=== PATIENT | male | born 1970 | race Caucasian/White ===

== ENCOUNTER 2025-01-18 12:32 | Emergency (ER) | payer BC, MEDICARE, SELFPAY ==
[2025-01-18 12:38] VITALS: BP 138/89
--- NOTE | 2025-01-18 14:30 | EDRN ---
Pt arrives w/ swelling dmitri rednes of R lower leg. Pt states his leg has been red and very swollen for 3-4 days. Pt has not been able to sleep and not been elevating his leg as much as he usually does. Pt states w/c area that elevates his leg is now
broken and he has been sleeping in w/c. Pt denies any pain but does feel pressure. No unusual to have redness. May not be cellulitis per pt and his .
[2025-01-18 14:33] VITALS: BMI 28.0
--- NOTE | 2025-01-18 14:48 | EDRN ---
Bilateral dorsalis pedis pulses present w/ doppler.
--- NOTE | 2025-01-18 15:08 | ED.GENMED ---
History of Present Illness
General
Chief Complaint: Skin Problem
Source: patient and family
Exam Limitations: none
Time Seen by Provider: 01/18/25 15:02
History of Present Illness
History of Present Illness:
54-year-old male 3 to 4 days of right leg swelling and redness. Lost the toenail 3 to 4 weeks ago. No fever chills or systemic symptoms. No chest pain or shortness of breath. Patient is paraplegic.
Past History
Past History
ED Past Medical History: Other (Paraplegia, IBS, Self cath's 12 times daily, Baclofen pump)
ED Past Surgical History: Orthopedic (Spinal fusion, B/L femur , Left shoulder surgery. Toe amputated left foot) and Other (Colostomy, Breast reduction. )
Social History
Tobacco: Non-smoker
Alcohol: Occasional
Personal:
Living: with family
Review of Systems
Review of Systems
All Other Systems: Not applicable
Constitutional: Denies fever or chills
Phy Exam
Physical Exam
Physical Exam:
GENERAL: Alert and oriented in no apparent distress
CARDIAC: Regular rate and rhythm without any obvious murmurs.
LUNGS: Clear breath sounds,normal
ABDOMEN: Soft, without focal tenderness or distention. Colostomy. Baclofen pump right lower quadrant
NEUROLOGICAL: Alert and oriented , paraplegia
SKIN: Warm and dry, erythema diffusely below the knee of the right leg including calf, ankle and foot. Significant edema. Warm and red. No nail to the right lower extremity. No drainage.
MUSCULOSKELETAL: Significant edema right lower extremity.
PSYCH: Normal and appropriate interaction.
Course
Orders/Labs/Results
Orders:
Orders
01/18/25 15:07
IV Insert/Care/Rem.- Treatment PRN
01/18/25 15:08
CeFAZolin 2 GRAM [Ancef] 2 grams in 10 ml IV NOW
US Periph Venous LOWER Ext RT Urgent
Comment:
Reason For Exam: Swelling/redness
01/18/25 16:06
Basic Metabolic Panel Urgent
Complete Blood Count/With Diff Urgent
Blood Culture Q30M
MAGGIE Source: Blood/Venous
Specimen Description:
01/18/25 16:17
Blood Culture Q30M
MAGGIE Source: Blood/Venous
Specimen Description:
Abnormal Lab Results
01/18/25
16:06
RBC 3.93 L 10^6/uL
(4.70-6.10)
Hgb 11.4 L g/dL
(13.0-18.0)
Hct 36.2 L %
(39.0-52.0)
MCHC 31.5 L g/dL
(33.0-37.0)
RDW 14.6 H %
(11.5-14.5)
Monocytes % 10.8 H %
(1.7-9.3)
Chloride 97 L mmol/L
(98-107)
Carbon Dioxide 36 H mmol/L
(22-30)
BUN 23 H mg/dl
(9-20)
Glucose 103 H mg/dl
(70-99)
01/18/25 16:06
01/18/25 16:06
Vital Signs
Initial and Last Documented VS:
Initial Vital Signs
Temp
97.5 F
01/18/25 12:36
Last Documented Vital Signs
Temp Pulse Resp BP Pulse Ox
97.5 F 78 16 133/71 96
01/18/25 12:36 01/18/25 16:15 01/18/25 16:15 01/18/25 16:15 01/18/25 16:15
MDM/Problems Addressed
Differential Diagnosis Includes:
Clinically significant cellulitis to the right lower extremity. Clearly warrants admission with IV antibiotics. Family and patient are reluctant to stay. They asked for reevaluation after the ultrasound and labs. We will start with 2 g of Ancef
IV. Admission was already recommended
Labs are stable ultrasound negative. However patient still warrants admission for cellulitis to the right lower extremity. Patient and family are refusing admission and understand the risks. They will however watch closely at home and return with
any issues or progression of symptoms
*Radiology
Radiology exam reviewed: radiology read reviewed (Negative leg ultrasound)
*Pulse Oximetry
Patient hypoxic: no
*Critical Care Note
Total Time (30-74mins, 75-104mins- exclusive of procedures): Not Applicable
Data Reviewed
Review of Other/Old Records Reveals: Labs, Records and Testing
ED Attending Note
-
Portions of this chart may have been created with voice recognition software.� Occasional wrong word or��sound alike� substitutions may have occurred due to the inherent limitations of voice recognition software.
Discharge Plan
Departure
Patient Disposition: Home (Routine Discharge)
Date of Disposition: 01/18/25
Time of Disposition: 16:54
Patient with high blood pressure during this ER visit?: Yes
Discharge Problem:
Cellulitis right lower extremity
Instructions: Cellulitis (Skin Infection), Adult (DC), BLOOD PRESSURE
Prescriptions:
New
cephalexin 500 mg capsule
500 mg PO QID 10 Days Qty: 40 0RF
No Action
gabapentin [Neurontin] 600 MG tablet
600 mg PO QID
ascorbic acid (vitamin C) [Vitamin C] 500 MG tablet
500 mg PO DAILY
oxybutynin chloride 5 MG tablet
5 mg PO BID
duloxetine 60 MG capsule,delayed release(DR/EC)
60 mg PO BID
multivitamin with folic acid [Tab-A-Aubree] 1 TABLET tablet
1 tab PO DAILY
Baclofen Pump [Patient's Own Baclofen Pump:] 1 EACH Pump.Resvr
0 ea SC DIRECTED
Patient Comments:
Basal with bolus.
Sinex
1 spray intranasal DAILYPRN PRN (Reason: congestion)
loratadine 10 MG tablet
10 mg PO DAILY
cephalexin 500 mg capsule
500 mg PO Q6H Qty: 28 0RF
Referrals:
Mark Hernandez MD [Family Provider] - Follow up in 2-3 days
Activity Restrictions/Additional Instructions:
As we discussed, return with increased redness spreading redness fever chills increasing pain or any other concerning symptoms
Also return if you change your mind about admission.
Make sure you get of dose of antibiotics in tonight
The prescription was sent to your pharmacy
Interventions
Interventions:
*Risk Screen - Suicide Last Done: 01/18/25 14:34
*General Assessment Last Done: 01/18/25 14:34
*Neglect/Abuse Screening Last Done: 01/18/25 14:34
ED- Fall Risk Assessment Last Done: 01/18/25 14:36
*ED COVID-19 Vaccine History Last Done: 01/18/25 14:34
*Nursing Disposition Last Done: 01/18/25 17:20
ED- Cardiac Assessment Last Done: 01/18/25 14:36
ED- Pulmonary Assessment Last Done: 01/18/25 14:36
ED-Skin Assessment Last Done: 01/18/25 14:36
Discharge Date and Time
Discharge Date/Time: 01/18/25 17:20
Print Language: ROMANIAN
--- NOTE | 2025-01-18 15:09 | EDRN ---
Dr. Heard in to see pt at this time.
[2025-01-18 16:15] VITALS: BP 133/71
[2025-01-18] MEDS: ANCEF 10 IV (16:21)
[2025-01-18 16:25] LABS: % Basophils 0.7 % (0-2); % Eosinophils 4.5 % (0-6); % Immature Granulocytes 0.4 % (0-0.5); % Lymphocytes 29.4 % (20.5-51.1); % Monocytes 10.8 % (1.7-9.3); % Neutrophils 54.2 % (42.2-75.2); Absolute Eosinophils 0.3 10^3/uL (0-0.7); Absolute Lymphocytes 1.6 10^3/uL (1.2-3.4); Absolute Monocytes 0.6 10^3/uL (0.1-0.6); Hematocrit 36.2 % (39.0-52.0); Hemoglobin 11.4 g/dL (13.0-18.0); Mean Corp Hgb Conc. 31.5 g/dL (33.0-37.0); Mean Corpuscular Volume 92.1 fL (80.0-94.0); Mean Platelet Volume 9.7 fL (7.4-10.4); Nucleated Red Blood Cells % 0 % (-); Platelet Count 203 10^3/uL (130-400); Red Blood Cell Count 3.93 10^6/uL (4.70-6.10); Red Cell Dist. Width 14.6 % (11.5-14.5); White Blood Cell Count 5.6 10^3/uL (4.8-10.8)
[2025-01-18 16:39] LABS: Blood Urea Nitrogen 23 mg/dl (9-20); Calcium 9.3 mg/dl (8.4-10.2); Carbon Dioxide 36 mmol/L (22-30); Chloride 97 mmol/L (98-107); Estimated Creatinine Clearance 104 ml/min; Glucose 103 mg/dl (70-99); Potassium 4.3 mmol/L (3.5-5.1); Sodium 140 mmol/L (135-145); eGFR > 60.00
== END 2025-01-18 17:20 | disposition home or self-care (01) ==
LOC: EMR 12:32
PROVIDERS: EMERGENCY PHYSICIAN Emergency Medicine; FAMILY PHYSICIAN Internal Medicine
DX: L03.115 Cellulitis of right lower limb (principal); G82.20 Paraplegia, unspecified; Z93.3 Colostomy status; Z98.1 Arthrodesis status
CPT/HCPCS: 99284; 96374; 80048; 85025; 87040; 93971

== ENCOUNTER 2025-11-22 18:03 | Observation (INO) | payer BC, MEDICARE, SELFPAY ==
[2025-11-22 14:42] VITALS: BP 116/68
[2025-11-22 15:31] VITALS: BP 109/73
--- NOTE | 2025-11-22 15:32 | ED.CVA ---
History of Present Illness
General
Chief Complaint: CVA/TIA Symptoms
Source: patient and spouse
Exam Limitations: none
Time Seen by Provider: 11/22/25 15:26
Nursing documentation reviewed up to this point in time: agreed with
Onset of Stroke Symptoms
Onset of symptoms known: Yes
Date of onset of symptoms: 11/22/25
History of Present Illness
History of Present Illness:
55 malePast medical history spinal fracture with lower extremity plegia, awoke normally today then he awoke from a nap around noon with weakness and cramping in his left arm left leg numbness of his face and tongue
Past History
Past History
ED Past Medical History: Other (Paraplegia, IBS, Self cath's 12 times daily, Baclofen pump)
ED Past Surgical History: Orthopedic (Spinal fusion, B/L femur , Left shoulder surgery. Toe amputated left foot) and Other (Colostomy, Breast reduction. )
Social History
Tobacco: Non-smoker
Alcohol: Occasional
Drug: None
Personal:
Living: with family
Employment: Employed
Phy Exam
Physical Exam
Physical Exam:
Physical Exam
General: no apparent distress, not acutely ill
Neck: No tongue bite
Heart: s1/s2 regular rate and rhythm, no murmur. equal radial pulses.
Lungs: no acute respiratory distress. clear bilaterally
Abdomen: normal bowel sounds. not tender. no CVAT
Neuro: Lower extremity plegia left hand weakness clear speech no facial palsy
Skin: no rash
Psychiatric: well kept. interactive and cooperative
Extremities: no edema.
Course
Orders/Labs/Results
Orders:
Orders
11/22/25 14:53
CT Head W/o Iv Contrast Urgent
Comment:
Reason For Exam: left sided weakness
11/22/25 Dinner
Cholesterol Lowering
At Your Request: Full Participation
11/22/25 15:34
Electrocardiogram (*1) Stat
Reason for Study: Other
Other Reason for Exam: neuro symptoms
CT BRAIN PERF STROKE ALERT Urgent
Comment:
Reason For Exam: left arm weakness
CT HEAD/NECK ANG STROKE ALERT Urgent
Comment:
Reason For Exam: left arm weakenss
EKG- Treatment ONCE
11/22/25 15:43
Complete Blood Count/With Diff Urgent
Comprehensive Metabolic Panel Urgent
Erythrocyte Sed Rate Urgent
PTT Urgent
Prothrombin Time Urgent
Troponin I Urgent
11/22/25 17:22
Admit/Transfer Patient As Directed
Co-Sign Provider:
Level of Care: Observation services
Assign to:: Telemetry
Physician / Group: Htay
Diagnosis: Left arm weakness
Reason for Telemetry: CVA/TIA
Date to Stop Telemetry: 11/25/25
Time to Stop Telemetry: 11:00
11/22/25 17:24
PRN Pain Medication Management As Directed
May give lesser potent ordered pain med per pt: Yes
preference::
Protocol:: Medication orders for pain may be administered in a
manner that supports deferring to patient preference
when the pt is:
- Requesting an ordered lesser potent pain medication.
Least to most potent pain medications are defined
as: acetaminophen < NSAID < tramadol < opioids
(morphine, oxycodone, hydromorphone).
- Requesting a lesser dose of the same medication IF
ORDERED.
- Requesting a less intrusive route of administration
if both routes are prescribed by the provider (PO <
IV).
11/22/25 17:25
Code Status As Directed
Resuscitation Status: Full Code
11/22/25 17:33
Aspirin Chewable [Low Strength Aspirin] 324 mg PO NOW STA
Clopidogrel Bisulfate [Plavix] 300 mg PO NOW STA
11/22/25 20:03
Acetaminophen [Tylenol/Feverall] 650 mg RECTAL Q4HPRN PRN
Acetaminophen [Tylenol] 650 mg PO Q4HPRN PRN
Atorvastatin [Lipitor] 40 mg PO QPM
11/22/25 20:03
Echo 2D MMode Color/Doppler Routine
Reason for Study: stroke/TIA
Case Management Consult ONCE
Case Management Consult: Discharge Planning
Comment: stroke/tia
DIETARY IP CONSULT Routine
Reason for Consult: stroke/TIA
NEUROLOGY CONSULT Urgent
Consulting Provider: Kristian Parra
Was physician already notified: Yes
Warp Worker Urgent
MR Brain Without Contrast Routine
Comment:
Reason For Exam: stroke/TIA
Recent pill cam endoscopy?: No
Activity As Directed
Activity Level: Out of Bed- Chair
NIH Stroke Scale As Directed
Directions: Per protocol
Comment: every shift and with any change in condition or mental status
Neurological Checks As Directed
Frequency: q4h
Additional Instructions:: q4h x 24h upon admission to the floor, then qshift & with any change in condition
and mental status
Patient Education As Directed
Type: Stroke education packet
Comment: provide to patient and family
Pneumatic Compression Sleeves As Directed
Type: Knee high
Straight Cath As Directed
Frequency: Other
Patient may straight cath themselves: Yes
Vital Signs As Directed
Frequency: Per unit guidelines
Call for:: BP greater than 180/105 mmHg or less than 100/60 mmHg
Ot Eval And Treat Routine
Pt Eval And Treat Routine
Activity Level: Out of Bed-Early Mobility
Speech Therapy Eval & Treat Routine
DX Deep Vein Thrombosis Video Routine
11/23/25 06:00
Basic Metabolic Panel IN AM
Cardiovascular Evaluation IN AM
Complete Blood Count/No Diff IN AM
Glycohemoglobin (HgbA1c) IN AM
diazePAM [Valium Injection] 5 mg IV ONCE ONE
11/23/25 08:00
Aspirin Chewable [Low Strength Aspirin] 81 mg PO DAILY
Clopidogrel Bisulfate [Plavix] 75 mg PO DAILY
11/25/25 11:00
DC Protocol for Telemetry ONCE
Abnormal Lab Results
11/22/25
15:43
RBC 3.63 L 10^6/uL
(4.70-6.10)
Hgb 11.2 L g/dL
(13.0-18.0)
Hct 34.8 L %
(39.0-52.0)
MCV 95.9 H fL
(80.0-94.0)
MCHC 32.2 L g/dL
(33.0-37.0)
RDW 15.0 H %
(11.5-14.5)
Absolute Monos (auto) 0.8 H 10^3/uL
(0.1-0.6)
Lymphocytes % 19.6 L %
(20.5-51.1)
ESR 80 H mm/hour
(0-20)
APTT 35.9 H Sec
(23.4-35.0)
Chloride 96 L mmol/L
(98-107)
Carbon Dioxide 33 H mmol/L
(22-30)
BUN 23 H mg/dl
(9-20)
Creatinine 0.6 L mg/dL
(0.7-1.3)
Glucose 105 H mg/dl
(70-99)
11/22/25 15:43
11/22/25 15:43
Vital Signs
Initial and Last Documented VS:
Initial Vital Signs
Temp Pulse Resp BP Pulse Ox
97.9 F 74 19 116/68 98
11/22/25 14:42 11/22/25 14:42 11/22/25 14:42 11/22/25 14:42 11/22/25 14:42
Last Documented Vital Signs
Temp Pulse Resp BP Pulse Ox
97.5 F 72 16 137/73 95
11/22/25 20:14 11/22/25 20:14 11/22/25 20:14 11/22/25 20:14 11/22/25 20:14
MDM/Problems Addressed
Differential Diagnosis Includes:
Stroke peripheral neuropathy intracerebral hemorrhage brain tumor seizure with Dio's paralysis
Chronic conditions affecting care: Neurological disorder
Acute Exacerbation and/or Progression of Chronic Illness: Neurological disorder
*Radiology
Radiology exam reviewed: radiology read reviewed
*Pulse Oximetry
SaO2: 98
Oxygen Mode of Delivery: Room air
Patient hypoxic: no
*EKG
Interpreted by ED Provider?: Yes
Interpretation: normal
Heart Rate: 78
Rate: normal
Rhythm: sinus
QRS Pattern: normal QRS
Ischemia: no ischemia
*Enterprise Systems Administrator Interpretation
Rate: normal
Interpretation: normal
Heart Rate: 78
Rhythm: sinus
*Critical Care Note
Total Time (30-74mins, 75-104mins- exclusive of procedures): 30
comment:
30
Update Note
Update Note:
3:40 PM update last known normal was 10 AM woke up 12 noon with symptoms therefore he is out of the 4-1/2 hour window, for systemic lytics T
ED Attending Note
-
Portions of this chart may have been created with voice recognition software.� Occasional wrong word or��sound alike� substitutions may have occurred due to the inherent limitations of voice recognition software.
Discharge Plan
Departure
Patient Disposition: Admit
Date of Disposition: 11/22/25
Time of Disposition: 16:52
Admit to: Telemetry
Presentation/result/management discussed w/ accepting MD/DO: Hospitalist
Patient with high blood pressure during this ER visit?: No
Condition: Good
Discharge Problem:
Muscle weakness of left arm
Interventions
Interventions:
*General Assessment Last Done: 11/22/25 14:47
*Neglect/Abuse Screening Last Done: 11/22/25 14:47
*ED COVID-19 Vaccine History Last Done: 11/22/25 14:47
*ED Influenza Vaccine History Last Done: 11/22/25 14:47
[facility] Fall Risk Assessment Tool Last Done: 11/22/25 15:36
*Nursing Disposition Last Done: 11/22/25 20:00
ED- Pulmonary Assessment Last Done: 11/22/25 15:30
ED- Neurological Assessment Last Done: 11/22/25 17:11
ED- Cardiac Assessment Last Done: 11/22/25 15:30
ED Swallowing Screen Last Done: 11/22/25 17:13
Discharge Date and Time
Discharge Date/Time: 11/22/25 20:00
[2025-11-22 15:35] VITALS: BMI 28.6
[2025-11-22 15:50] LABS: Hematocrit 34.8 % (39.0-52.0); Hemoglobin 11.2 g/dL (13.0-18.0); Mean Corp Hgb Conc. 32.2 g/dL (33.0-37.0); Mean Corpuscular Volume 95.9 fL (80.0-94.0); Nucleated Red Blood Cells % 0 % (-); Platelet Count 175 10^3/uL (130-400); Red Cell Dist. Width 15.0 % (11.5-14.5)
[2025-11-22 16:01] LABS: ALT (SGPT) 26 U/L (0-50); AST (SGOT) 29 U/L (17-59); Albumin 4.0 g/dl (3.5-5.0); Alkaline Phosphatase 121 U/L (38-126); Blood Urea Nitrogen 23 mg/dl (9-20); Calcium 9.3 mg/dl (8.4-10.2); Carbon Dioxide 33 mmol/L (22-30); Chloride 96 mmol/L (98-107); Estimated Creatinine Clearance > 125 ml/min; Glucose 105 mg/dl (70-99); Potassium 4.3 mmol/L (3.5-5.1); Sodium 135 mmol/L (135-145); Total Protein 7.5 g/dl (6.3-8.2); eGFR > 60.00
[2025-11-22 16:03] LABS: INR 1.11; PT 14.4 Sec (11.4-14.6)
[2025-11-22 16:04] LABS: APTT 35.9 Sec (23.4-35.0)
[2025-11-22 16:11] LABS: Troponin I < 0.012 ng/ml
--- NOTE | 2025-11-22 16:30 | CON.NEURO4 ---
Addendum entered and electronically signed by Kristian Parra MD 11/22/25 19:14:
The 10-point review of systems was negative aside from as given in the above history of present illness.
The patient was not on any antiplatelet at home.
Original Note:
Consultation - Neurology 4
-
CONSULTING PHYSICIAN: Dr. Kristian Parra
REFERRING PHYSICIAN: Dr. Yobani Rock
DICTATED BY: Dr. Kristian Parra
DATE/TIME OF REQUEST: 11/22/2025
DATE/TIME OF CONSULTATION: 11/22/2025
Reason for Consultation: Stroke-like symptoms
ASSESSMENT AND PLAN:
The patient is a 55 years old male with a past medical history of spinal fracture with bilateral lower extremity paralysis, who today went to sleep for a nap at around 10 AM and woke up today at around 12:30 PM after a nap with weakness and cramping
in his left arm. There is no history of speech difficulty or facial droop.
. CT of the head does not show an acute intracranial abnormality.
. CTA of the head and neck did not show a large vessel occlusion however there was MODERATE SPINAL CORD COMPRESSION and CENTRAL CANAL STENOSIS at C4/C5 and Mild spinal cord compression and central canal stenosis at C3/C4, C5/C6, and C6/C7.
. MRI of the brain without contrast.
. MRI of the cervical spine with and without contrast.
There is a possibility of a stroke, therefore the patient will be on stroke pathway and is going to be on aspirin 81 mg daily, Plavix 75 mg daily and atorvastatin 40 mg daily. The plan is to get MRI of the brain without contrast. There is a
concern about cervical cord compression for which will get MRI of the cervical spine with and without contrast.
History of Present Illness:
The patient is a 55 years old male with a past medical history of spinal fracture with bilateral lower extremity paralysis, who today went to sleep for a nap at around 10 AM and woke up today at around 12:30 PM after a nap with weakness and cramping
in his left arm. There is no history of speech difficulty or facial droop.
Surgical History: Spinal fusion
Home Medications:
Review of Systems:
Patient denies any fever, headache, chest pain, shortness of breath, GI or symptoms.
�Per the HPI.�All systems are reviewed negative except above.
�- Remove any of these problems that patient may have complained about in the HPI.
�- If patient is unresponsive, intubated or demented, say 'Per the HPI. I am unable to obtain a complete review of systems�because of patient's inability to provide history.'
Neurologic Examination:
Alert and oriented x 3,
Speech is clear,
The cranial nerves II to XII grossly intact,
The motor strength is 4/5 in the left upper extremity and 5/5 in the right upper extremity. The patient has no movement in both lower extremities,
There is no ataxia seen in bilateral upper extremities
Vital Signs and Labs
-
Vital Signs and Labs:
Vital Signs
Temp Pulse Resp BP Pulse Ox
36.6 C 79 17 109/73 95
11/22/25 14:42 11/22/25 16:45 11/22/25 16:45 11/22/25 15:31 11/22/25 16:30
Lab Results
11/22/25 15:43
11/22/25 15:43
PT 14.4 Sec (11.4-14.6) 11/22/25 15:43
INR 1.11 11/22/25 15:43
APTT 35.9 Sec (23.4-35.0) H 11/22/25 15:43
Sodium 135 mmol/L (135-145) 11/22/25 15:43
Potassium 4.3 mmol/L (3.5-5.1) 11/22/25 15:43
BUN 23 mg/dl (9-20) H 11/22/25 15:43
Glucose 105 mg/dl (70-99) H 11/22/25 15:43
Calcium 9.3 mg/dl (8.4-10.2) 11/22/25 15:43
Medications
-
Home Medications
�Medication �Instructions �Recorded
Baclofen Pump [Patient's Own 0 ea SC DIRECTED 10/18/20
Baclofen Pump:]
Sinex 1 spray intranasal .SEE 10/18/20
BELOW PRN congestion
ascorbic acid (vitamin C) 500 mg 500 mg PO QPM 10/18/20
tablet (Vitamin C)
duloxetine 60 mg capsule,delayed 60 mg PO HS 10/18/20
release
gabapentin 600 mg tablet 600 mg PO QID 10/18/20
(Neurontin)
amitriptyline 25 mg tablet 25 mg PO HS 11/22/25
docusate sodium 100 mg capsule 100 mg PO Q6HPRN PRN constipation 11/22/25
(Stool Softener)
levocetirizine 5 mg tablet 5 mg PO HS 11/22/25
oxycodone 5 mg tablet 5 mg PO Q6H PRN mild pain 11/22/25
oxycodone 5 mg tablet 10 mg PO HSPRN PRN severe pain 11/22/25
tirzepatide (weight loss) 7.5 7.5 mg SC FR 11/22/25
mg/0.5 mL subcutaneous pen
injector (Zepbound)
vibegron 75 mg tablet (Gemtesa) 75 mg PO HS 11/22/25
--- NOTE | 2025-11-22 16:56 | W.PN.UPDATE ---
Addendum entered and electronically signed by George Bradford MD 11/22/25 17:29:
- Will start loading ASA and Plavix
- await Neuro recs
Original Note:
Update Note
Progress Note Update
This note serves as an addendum to the H&P by assistant professor of biology Leslie ZAMORA
HPI
55M
PMHX Paraplegia S/P spinal fracture c/b paraplegia, IBS, Self cath's 12 times daily, Baclofen pump
- woke up USOH today then he awoke from a nap around noon
- weakness and cramping in his left arm left leg numbness of his face and tongue
Relevant VS
Temp Pulse Resp BP Pulse Ox
97.9 F 79 17 109/73 95
11/22/25 14:42 11/22/25 16:45 11/22/25 16:45 11/22/25 15:31 11/22/25 16:30
PE
Gen: NAD
HEENT:
Neck:supple
Lungs: CTA
Cor: RRR S1 S2
Abdomen:�soft NT NG
has suprapubic cystostomy
ENGINEERING ASSISTANT: AAO3
MS: paraplegic
Relevant Data
Laboratory Tests
10/22/21
19:03
Leukocyte Esterase Rfl 1+ A
Urine WBC (Reflex) 40-50 A
Urine Bacteria (Reflex) Many A
Abnormal Lab
11/22/25
15:43
RBC 3.63 L
Hgb 11.2 L
Hct 34.8 L
MCV 95.9 H
MCHC 32.2 L
RDW 15.0 H
Absolute Monos (auto) 0.8 H
Lymphocytes % 19.6 L
ESR 80 H
APTT 35.9 H
Chloride 96 L
Carbon Dioxide 33 H
BUN 23 H
Creatinine 0.6 L
Glucose [address] BRAIN PERF STROKE ALERT; report noted
HCT
No acute intracranial abnormality.
H & N CTA
NECK CTA:
1. MODERATE SPINAL CORD COMPRESSION and CENTRAL CANAL STENOSIS at C4/C5.
2. Mild spinal cord compression and central canal stenosis at C3/C4, C5/C6, and C6/C7.
3. Severe bilateral neural foraminal narrowing in the cervical spine.
4. Moderate discogenic degenerative disease at C4/C5, C5/C6, and C6/C7.
5. No CTA evidence for internal carotid artery stenosis or occlusion.
6. No CTA evidence for vertebral artery stenosis or occlusion.
HEAD CTA:
1. No CT evidence for acute intracranial hemorrhage or transcortical infarct.
2. No CTA evidence for large vessel intracranial arterial stenosis or occlusion.
3. Mild calcific atherosclerotic plaque in both intracranial ICAs.
4. 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
5. Moderate mucosal disease in the left maxillary sinus.
ASSESSMENT & PLAN
Pending Rx reconciliation
Woke up with acute Lt UEx and Susanna and Lt face paresthesis and Lt UEx weakness
R/O CVA/TIA
R hand dominant
- NEG H & N CTA
- NEG HCT
- start ASA
- Brain MRI - had MRI before
- FU Neuro consult
Paraplegic patent on Baclofen pum
Neurogenic bladder
abnormal UA
- has multiple hard wear
- Intermittent self cath via suprapubic cystostomy
- FU UCx
- Hold off ABx for now
DVT Px: SQH
Full code
OBS TLM
--- NOTE | 2025-11-22 17:01 | HPS.HSE ---
Family Physician
-
Family Physician: Mark Hernandez
Chief Complaint
-
Left sided weakness and facial numbness
History of Present Illness
Patient is a 55 y/o male past medical history of paraplegia who presents with left sided weakness and facial numbness. Patient reports he took a nap around 10:30 this morning, and upon waking around 12:00 he noticed that his left side was not
normal. He reports left sided facial numbness and left arm weakness. He is unable to move his left leg at baseline. He denies changes in vision or speech. He denies any prior history of stroke.
Medical History
Past Medical History
Past Medical History: Reports Other
Additional Past Medical History:
Lower Extremity Paraplegia
Chronic Urinary Retention requiring intermittent straight cath
Past Surgical History: Reports Other
Additional Past Surgical History:
Spinal Fusion
Bilateral Femur Surgery
Left Shoulder Arthroscopy
Colostomy
Breast Reduction
Baclofen Pump
Social History
Tobacco: Non-smoker
Alcohol: Occasional
Family History
Family History: Not pertinent
Allergies / Home Medications
Allergies reflects when Allergies were last updated in [email or web address].
Home Medications with original date entered in [email or web address]
Allergy/Medication List:
Allergies
Allergy/AdvReac Type Severity Reaction Status Date / Time
doxycycline Allergy Rash Verified 11/10/22 18:31
Sulfa (Sulfonamide Allergy Rash Verified 11/10/22 18:31
Antibiotics)
Home Medications
Baclofen Pump [Patient's Own Baclofen Pump:] 0 ea SC DIRECTED 10/18/20
Sinex 1 spray intranasal .SEE BELOW PRN congestion 10/18/20
ascorbic acid (vitamin C) 500 mg tablet (Vitamin C) 500 mg PO QPM 10/18/20
duloxetine 60 mg capsule,delayed release 60 mg PO HS 10/18/20
gabapentin 600 mg tablet (Neurontin) 600 mg PO QID 10/18/20
amitriptyline 25 mg tablet 25 mg PO HS 11/22/25
docusate sodium 100 mg capsule (Stool Softener) 100 mg PO Q6HPRN PRN constipation 11/22/25
levocetirizine 5 mg tablet 5 mg PO HS 11/22/25
oxycodone 5 mg tablet 5 mg PO Q6H PRN mild pain 11/22/25
oxycodone 5 mg tablet 10 mg PO HSPRN PRN severe pain 11/22/25
tirzepatide (weight loss) 7.5 mg/0.5 mL subcutaneous pen injector (Zepbound) 7.5 mg SC FR 11/22/25
vibegron 75 mg tablet (Gemtesa) 75 mg PO HS 11/22/25
Review of Systems
-
History Source: Patient
A 12 point ROS was completed and negative except as noted: Yes
Constitutional: Denies Fever
Respiratory: Denies Cough or Trouble Breathing
Cardiac: Denies Chest Pain or Palpitations
Physical Exam
Vital Signs
Vital Signs
Temp Pulse Resp BP Pulse Ox
97.9 F 79 17 109/73 95
11/22/25 14:42 11/22/25 16:45 11/22/25 16:45 11/22/25 15:31 11/22/25 16:30
Physical Exam
General: Comfortable and Conversant
HEENT: Anicteric and Moist mucous membranes
Respiratory: Clear and Non Labored Respirations
Cardiac: S1/S2 and Regular Rhythm
GI: Soft and Ostomy
Genito-urinary: Other (Suprapubic ostomy)
Musculoskeletal: No Clubbing, No Cyanosis and Other (Trace edema bilateral lower ext)
Skin: Warm and Dry
Neuro: Awake, Alert, Oriented and Other (Bilateral lower extremity paraplegia which is baseline; Able to lift both arms, but noted left wrist drop with inability to abduct fingers on the left); No Slurred Speech or Facial Droop
Psych: Calm
Laboratory Results
-
11/22/25 15:43
11/22/25 15:43
Laboratory Results
PT 14.4 Sec (11.4-14.6) 11/22/25 15:43
INR 1.11 11/22/25 15:
APTT 35.9 Sec (23.4-35.0) H 11/22/25 15:
Total Bilirubin 0.3 mg/dl (0.2-1.3) 11/22/25 15:
AST 29 U/L (17-59) 11/22/25 15:
ALT 26 U/L (0-50) 11/22/25 15:43
Alkaline Phosphatase 121 U/L (38-126) 11/22/25 15:
Troponin I < 0.012 ng/ml 11/22/25:43
Data Reviewed
-
CT Scan: Report Reviewed by me
Lab Data: Labs Reviewed by me
Impression/Plan
-
Left Hand Weakness, clinical concern for acute stroke
-Consult Neurology
-Give loading doses of aspirin 324mg and clopidogrel 300mg NOW, then continue aspirin 81mg Daily and clopidegrel 75mg Daily
-Check Brain MRI
-Check HgbA1c and Lipid Panel
-Consult PT/OT
Paraplegia with Chronic Urinary Retention
-Patient with baclofen/Dilaudid pump which is MRI compatible
-Continue amitriptyline, duloxetine and gabapentin
-Continue oxycodone PRN as prior to admission
-Continue intermittent straight cath via suprapubic urostomy as prior to admission
DVT proph: SCDs
Code Status: Full Code
[2025-11-22] MEDS: LOW STRENGTH ASPIRIN 324 MG PO (18:11)
[2025-11-22] MEDS: PLAVIX 300 MG PO (18:12)
--- NOTE | 2025-11-22 18:17 | PHANOTE ---
11/22/2025, could not confirm pt.'s baclofen pump dosing with other sources (pharmacy records, ecw).
[2025-11-22 20:14] VITALS: BP 137/73
[2025-11-22] MEDS: NEURONTIN 600 MG PO (21:02)
[2025-11-22] MEDS: LIPITOR 40 MG PO (21:02)
[2025-11-22] MEDS: CYMBALTA DELAYED RELEASE 60 MG PO (21:02)
[2025-11-22] MEDS: DETROL LA 4 MG PO (21:02)
[2025-11-22] MEDS: ELAVIL 25 MG PO (21:02)
[2025-11-22 23:02] VITALS: BP 114/67
[2025-11-23 03:14] VITALS: BP 127/76
[2025-11-23] MEDS: LOW STRENGTH ASPIRIN 81 MG PO (06:42)
[2025-11-23] MEDS: NEURONTIN 600 MG PO ×2 (06:42→13:34)
[2025-11-23] MEDS: PLAVIX 75 MG PO (06:43)
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
[2025-11-23 09:33] LABS: Hematocrit 37.5 % (39.0-52.0); Hemoglobin 11.8 g/dL (13.0-18.0); Mean Corp Hgb Conc. 31.5 g/dL (33.0-37.0); Mean Corpuscular Volume 94.9 fL (80.0-94.0); Platelet Count 184 10^3/uL (130-400); Red Cell Dist. Width 15.5 % (11.5-14.5)
[2025-11-23 10:11] LABS: Blood Urea Nitrogen 19 mg/dl (9-20); Calcium 9.4 mg/dl (8.4-10.2); Carbon Dioxide 36 mmol/L (22-30); Chloride 97 mmol/L (98-107); Estimated Creatinine Clearance > 125 ml/min; Glucose 85 mg/dl (70-99); HDL Cholesterol 47 mg/dl; LDL Cholesterol, Calculated 128 mg/dl; Potassium 4.1 mmol/L (3.5-5.1); Sodium 139 mmol/L (135-145); Very Low Density Lipoprotein 21 mg/dl (0-30); eGFR > 60.00
--- NOTE | 2025-11-23 10:32 | PTOTSP ---
Dysphagia Evaluation
No signs concerning for oral/pharyngeal dysphagia or aspiration observed, though dysphagia risk is elevated given current work up to rule out stroke with initial symptoms including facial/tongue numbness (now resolved). Patient reported signs
concerning for chronic esophageal dysphagia (i.e., sensation of stasis at base of neck with dry meats and bread, relieved with liquid wash).
Recommend:
1. Regular solids, Thin liquids
2. Medications as best tolerated
3. Strategies: upright to 90 degrees, pick soft/moist foods, alternate solids/liquids, remain upright for 30 minutes after PO intake
4. Consider outpatient gastroenterology consult to rule out esophageal dysphagia
5. Will continue to follow if found to have an acute stroke, consider instrumental swallow testing at the acute care level to rule out pharyngeal dysphagia.
[2025-11-23 10:58] VITALS: BP 126/75; PULSE 90; O2SAT 97
[2025-11-23 11:20] LABS: Glycohemoglobin (HgbA1c) 5.3 % (4.0-5.9)
[2025-11-23 11:56] VITALS: BP 121/64
--- NOTE | 2025-11-23 13:48 | WOUNDNOTE ---
DARY RN NOTE: Consulted for ostomy needs. Patient came in with a Colostomy and has own supplies. at bedside confirmed that patient is independent with care. No ostomy needs at this time. Will sign off.
--- NOTE | 2025-11-23 13:49 | W.DCSUMMARY ---
Discharge Summary
Discharge Data
Date of Admission: 11/22/25
Date of Discharge: 11/23/25
Total time spent discharging patient (in min): 37
-
Pending Results: No
Hospital Course
Discharging provider: Rahul Howe DO
Discharge disposition: Home
Primary discharge diagnoses:
Paresthesias and pain of the left hand/arm
Left wrist drop
Dyslipidemia
Concern for CVA versus TIA
Concern for cervical spine compression
Chronic discharge diagnoses:
Paraplegia due to spinal cord injury
Neurogenic bladder with self-catheterization
Baclofen pump
Status post spinal fusion
Status post colostomy
Hospital course:
55-year-old male that presented to the hospital with complaint of cramping pain in his left hand associated with numbness and weakness to dorsiflexion of the left wrist. CT head and CTA head and neck did not show any signs of transcortical
infarction or significant obstructive cerebrovascular disease. 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 Was evaluated by neurology who recommended inpatient MRI brain
without contrast and MRI C-spine without contrast. Unfortunately, due to hospital policy regarding baclofen pumps the patient was unable to have these test performed without a managing physician for his baclofen pump in-house. Family persistent on
discharge home within the first day of his hospital admission. Shared decision making occurred with hospitalist team, neurologist, and patient's who decided on empiric treatment for TIA/CVA with outpatient MRI to be performed. Was started on
dual antiplatelet therapy with aspirin and Plavix. Started on high intensity statin with LDL near 130 on FLP. Should continue with dual antiplatelet therapy to complete 21 days then discontinue Plavix. Should have repeat lipid panel 1 month after
discharge with LDL goal closer to 70, <70 if presence of ischemic infarct on MRI. Patient will have follow-up in office with neurology to review his MRI brain and MRI C-spine results. Further consideration for neurosurgical evaluation to be made
at that time.
Consultants:
Neurologist � Kristian Parra MD
Pertinent imaging findings:
Transthoracic echocardiogram (11/23/2025)
SUMMARY
1. Normal biventricular size and systolic function, with no regional wall motion abnormalities. Estimated LVEF 60-65%.
2. No significant valve disease.
3. Turbulent flow in the right atrium makes it difficult to rule out PFO. If clinically indicated, SHAKIR can be considered.
4. No prior study for comparison.
CT head without contrast (11/22/2025)
FINDINGS: Unenhanced CT imaging of the head reveals no findings to suggest recent infarction, intracranial hemorrhage, extra-axial fluid collection, mass effect or midline shift. The ventricles, cisterns and sulci are within the limits of normal.
The brainstem and posterior fossa structures demonstrate no significant focal abnormality.
CT brain perfusion study (11/22/2025)
CBF <30% Volume: 0 mL (estimate of ischemic core)
Tmax >6 second Volume: 0 mL (critically hypoperfused tissue)
CBF/Tmax Mismatch Volume: 0 mL (ischemic penumbra)
CBF/Tmax Mismatch Ratio: None
Hypoperfusion Index (Tmax >10s/Tmax >6s): N/A (predicts rate of collateral flow, infarct growth, and clinical outcome)
CBV Index (rCBV in Tmax >6s): -
CTA head and neck (11/22/2025)
NECK CTA:
1. MODERATE SPINAL CORD COMPRESSION and CENTRAL CANAL STENOSIS at C4/C5.
2. Mild spinal cord compression and central canal stenosis at C3/C4, C5/C6, and C6/C7.
3. Severe bilateral neural foraminal narrowing in the cervical spine.
4. Moderate discogenic degenerative disease at C4/C5, C5/C6, and C6/C7.
5. No CTA evidence for internal carotid artery stenosis or occlusion.
6. No CTA evidence for vertebral artery stenosis or occlusion.
HEAD CTA:
1. No CT evidence for acute intracranial hemorrhage or transcortical infarct.
2. No CTA evidence for large vessel intracranial arterial stenosis or occlusion.
3. Mild calcific atherosclerotic plaque in both intracranial ICAs.
4. 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
5. Moderate mucosal disease in the left maxillary sinus.
Pertinent procedural findings: N/A
Follow-up:
Family doctor within 1 week
Neurology within 1 to 2 weeks
MRI brain without contrast and MRI C-spine at earliest convenience as OP
Repeat lipid panel in 3 months
Education:
Discussed with the patient's at the bedside on signs that should prompt her to call her physician or return to the ED for further assessment. I stated that if the patient developed inability to form words, facial droop, worsening or acute
unilateral motor weakness that she should contact physician or come back to the ED for further assessment.
Discharge Plan
-
Patient Disposition: Home (Routine Discharge)
Discharge Diagnosis/Procedures: Left arm/hand weakness and pain
Dyslipidemia
Concern for stroke versus TIA
Concern for cervical compression
Unable to have MRI inpatient due to baclofen pump
Condition: Fair
Diet: Low Cholesterol
Activity: With assistance and As tolerated
Driving Restrictions: No driving
Bathing Restrictions: None
Blood Work: BMP and CBC in 1 week with family doctor
Lipid panel in 3 months with family doctor
Others Tests: MRI brain without contrast
MRI C-spine without contrast
Referrals:
Mark Hernandez MD [Family Provider, Internal Medicine]
Lida Landers NP [Specified Professional Personl, Neurology] - in one to two weeks
Additional Discharge Medication Instructions: Start atorvastatin 40 mg every evening
Start aspirin 81 mg every day indefinitely
Start Plavix 75 mg daily for 20 more days after discharge then stop taking Plavix
Prescriptions:
New
atorvastatin 40 mg Tablet
40 mg PO QPM 30 Days Qty: 30 0RF
aspirin 81 mg Tablet,Chewable
81 mg PO DAILY Qty: 30 0RF
clopidogrel 75 mg Tablet
75 mg PO DAILY 20 Days Qty: 20 0RF
Continued
gabapentin [Neurontin] 600 MG tablet
600 mg PO QID
ascorbic acid (vitamin C) [Vitamin C] 500 MG tablet
500 mg PO QPM
duloxetine 60 MG capsule,delayed release(DR/EC)
60 mg PO HS
Baclofen Pump [Patient's Own Baclofen Pump:] 1 EACH Pump.Resvr
0 ea SC DIRECTED
Patient Comments:
11/22/2025, per spouse, pt. uses baclofen pump and receives basal with bolus dosing, up to 7 boluses a day. Per spouse, pump has baclofen mixed w/ dilaudid. Pt. changed pump Q3-4 months. Last changed 10/15/2025 per spouse.
Sinex
1 spray intranasal .SEE BELOW PRN (Reason: congestion)
Patient Comments:
11/22/2025, per spouse, pt. uses up to 15 times a day as needed.
amitriptyline 25 mg Tablet
25 mg PO HS
docusate sodium [Stool Softener] 100 mg Capsule
100 mg PO Q6HPRN PRN (Reason: constipation)
Patient Comments:
11/22/2025, when takes oxycodone.
oxycodone 5 mg Tablet
5 mg PO Q6H PRN (Reason: mild pain)
Patient Comments:
11/22/2025, takes w/ stool softener when used.
oxycodone 5 mg Tablet
10 mg PO HSPRN PRN (Reason: severe pain)
Patient Comments:
11/22/2025, takes w/ stool softener when used.
levocetirizine 5 mg Tablet
5 mg PO HS
Gemtesa 75 mg Tablet
75 mg PO HS
Zepbound 7.5 mg/0.5 mL Pen Injector
7.5 mg SC FR
Discharge Orders:
Discharge Patient (As Directed); Ordered 11/23/25
Ordered By: Rahul Howe
Discharge Date and Time
Print Language: [place]
[2025-11-23 14:06] VITALS: BP 119/78
--- NOTE | 2025-11-23 14:17 | CM ---
CM met with patient and his at bedside. IA completed. Patient is for discharge home today. He resides with his in a single story house. He has hx of paraplegia from SCI. He manages at home independently with mobility and self-care. His
and daughter ( home from college) are available to assist if needed. Patient and deny any concerns about d/c home.
PCP: Mark Hernandez
Pharmacy: [facility]
Plan: home today, no needs
== END 2025-11-23 14:58 | disposition home or self-care (01) ==
LOC: 4 WEST ACU 18:03
PROVIDERS: Physician Assistant Medical; ADMITTING PHYSICIAN Internal Medicine; ATTENDING PHYSICIAN Internal Medicine; CONSULT PHYSICIAN Psychiatry & Neurology Neurology; EMERGENCY PHYSICIAN Emergency Medicine; FAMILY PHYSICIAN Internal Medicine
DX: R20.2 Paresthesia of skin (principal); M79.642 Pain in left hand; M79.602 Pain in left arm; M21.332 Wrist drop, left wrist; R20.0 Anesthesia of skin; M62.81 Muscle weakness (generalized); E78.5 Hyperlipidemia, unspecified; G82.20 Paraplegia, unspecified; N31.9 Neuromuscular dysfunction of bladder, unspecified; R33.8 Other retention of urine; R82.90 Unspecified abnormal findings in urine; M47.22 Other spondylosis with radiculopathy, cervical region; M48.02 Spinal stenosis, cervical region; E66.9 Obesity, unspecified; Z68.28 Body mass index [BMI] 28.0-28.9, adult; Z98.1 Arthrodesis status; Z93.3 Colostomy status
CPT/HCPCS: 70450; 70496; 70498; 80048; 80053; 80061; 83036; 84484; 85025; 85027; 85610; 85652; 85730; 92610; 93005; 93306; 97162; 97167; 99291; G0378; Q9967